=== PATIENT | male | born 1985 | race Caucasian/White ===

== ENCOUNTER 2022-10-16 23:04 | Emergency (ER) | payer OTHER ==
[~2022-10-16] VITALS: Ht 177.8 cm; Wt 83.9 kg
[2022-10-16 23:12] VITALS: BP 137/68; PULSE 88; RESP 16; TEMP 97.5; O2SAT 100
[2022-10-16 23:56] VITALS: BP 137/68; PULSE 88; RESP 16; TEMP 97.5; O2SAT 100
== END 2022-10-16 23:56 | disposition left against medical advice (07) ==
LOC: MED 23:04 → EDBD 23:04 → MED 23:56
DX: S60.361A Insect bite (nonvenomous) of right thumb, initial encounter (principal); Z53.21 Procedure and treatment not carried out due to patient leaving prior to being seen by health care provider; W57.XXXA Bitten or stung by nonvenomous insect and other nonvenomous arthropods, initial encounter; Y93.89 Activity, other specified; Y92.89 Other specified places as the place of occurrence of the external cause; Y99.8 Other external cause status
CPT/HCPCS: 99281